=== PATIENT | male | born 1950 | race Caucasian/White ===

== ENCOUNTER 2021-12-26 08:45 | Outpatient (RCR) | payer BC, SELFPAY | END 2022-01-05 15:31 | disposition home or self-care (01) | PROVIDERS: PCP Family Medicine; Visit Provider Surgery | DX: R26.89 Other abnormalities of gait and mobility (principal); Z51.89 Encounter for other specified aftercare | CPT/HCPCS: 97110; 97112; 97162 ==

== ENCOUNTER 2023-07-31 06:18 | Day surgery (SDC) | payer MEDICARE, BC, SELFPAY ==
[2023-07-31] VITALS (15 sets, daily range): BP systolic 116–143; BP diastolic 65–80; PULSE 51–62; RESP 16–18; TEMP 36.1–36.6; O2SAT 94–100; BMI 39.2
[2023-07-31] MEDS: ACETAMINOPHEN 500 MG TABLET 1000 MG PO (06:25)
[2023-07-31] MEDS: OXYCODONE (CR) 10 MG TAB.ER.12H PO (06:25)
[2023-07-31] MEDS: SODIUM CHLORIDE 0.9 % (FLUSH) 10 ML SYRINGE IVF (06:30)
[2023-07-31] MEDS: LACTATED RINGERS 1000 ML 1,000 ML 100 ML IV ×2 (06:30→08:42)
--- NOTE | 2023-07-31 07:09 | W.PM.H&PU ---
History & Physical Update History & Physical Update H&P Reviewed and patient assessed: No changes noted
[2023-07-31] MEDS: MIDAZOLAM HCL 1 MG/ML inj IVP (07:20)
[2023-07-31] MEDS: fentaNYL 100 MCG/2 ML inj IVP (07:20)
--- NOTE | 2023-07-31 07:39 | SUR.PREOP ---
TIME?OUT:?75 PT/Ishmael TORREZ RN/Annette MUNGUIA MDA?VERIFICATION?OF?SURGICAL?SITE,?PROCEDURE,?AND?CONSENT OBTAINED?PRIOR?TO?INVASIVE?PROCEDURE.
[2023-07-31] MEDS: CEFAZOLIN 2 GM in 0.9 % SODIUM CHLORIDE Mini-bag 100 ML IVPB (07:41)
[2023-07-31] MEDS: TRANEXAMIC ACID 100 MG/ML INJ 1000 MG IV (07:45)
--- NOTE | 2023-07-31 09:32 | PM.ORPRC ---
Procedure Note Date of procedure: 07/31/23 Procedure: PREOPERATIVE DIAGNOSIS: 1. Right knee osteoarthritis, primary, severe POSTOPERATIVE DIAGNOSIS: 1. Right knee osteoarthritis, primary, severe PROCEDURE: 1. Right total knee arthroplasty - subvastus; modifier 22. 33% added time and difficulty for this case due to valgus deformity, large and numerous osteophytes/loose bodies, and increased body mass (BMI 39.3; total kg 131) which ultimately required increased time as noted but also increased assistants. SURGEON: Jorge Luis Baumann MD. RISK CONTROL SPECIALIST: Amanda Clemente PA-C - Of note, a skilled nursing home assistant was critical for this case to aid in patient positioning, tissue retraction, limb manipulation/positioning, and closure. ANESTHESIA: Spinal anesthetic IMPLANTS: DePuy J&J all cemented TKA - Attune PS femur size 7, size 7 tibia, 5 poly spacer, 38 mm patella TOURNIQUET: 120 minutes at 300 torr EBL: 50 ml COMPLICATIONS: None evident INDICATIONS: The patient is a pleasant 72-year-old male who has experienced severe right knee pain and difficulty bearing weight. Workup included x-rays which revealed severe osteoarthrosis in the knee. Given the deformity, the dysfunction, and the pain, as well as the failure of nonoperative management, recommendation was made for surgery. FINDINGS: Full-thickness chondral loss diffusely throughout the lateral and patellofemoral compartments. To a lesser degree medial compartment. Numerous and large osteophytes spectacular around the patella and the lateral compartment including large loose body posterolateral compartment. Moderate effusion upon entering the joint. DESCRIPTION OF PROCEDURE: Following a thorough discussion of risks, benefits, and alternatives consent was obtained and the right knee was marked. The patient was brought to the operating room and placed supine on the operating table. Induction of anesthesia was undertaken. 3 g IV Ancef and 1 g tranexamic acid was administered within 1 hr of incision preoperatively. Proper time-out was performed identifying proper patient, site, procedure. The operative extremity was prepped and draped in the appropriate sterile fashion using ChloraPrep after the patient was positioned supine with all bony prominences well padded. A longitudinal, anterior, midline skin incision was made starting approximately 3cm proximal to the superior pole of the patella and advanced distal to the tibial tubercle. A subvastus approach was utilized. A medial subperiosteal sleeve was created with knife, moore elevator and curved osteotome. The retropatellar fatpad was resected and the synovium in the suprapatellar pouch excised to visualize the anterior femoral cortex. Femoral preparation was performed via an intramedullary guide. Step drill allowed access into the femoral canal. The distal cutting guide was placed with 6 ? of valgus and 12 mm cut on the distal femur. Femur was sized using a posterior referencing guide but also based on trans epicondylar axis and Peach's line in 3? of external rotation. This found have a best fit with the sizing noted above. The 4 in 1 cutting block was then placed, and the distal femur shaped accordingly. The box cut was then created and the trial implant inserted to confirm appropriate fit. We turned our attention to the proximal tibia. Extramedullary guide was utilized for cutting with the goal of being 90 degree cut from the mechanical axis of the tibia in the varus/valgus plane utilizing tibial crest as the primary alignment. Initially a 2 mm resection was performed from the medial tibial plateau. Ultimately, balancing was achieved in both flexion and extension in both varus and valgus. The knee was able to achieve full extension as well comfortably. The patella was initially measured and found have a thickness of 22 mm. It was resected back to approximately 14.5 mm. It was sized to be a best fit with as noted above. This was drilled, trial placed. All trials were placed and found to have an excellent stability and balance. At this stage, trial implants were removed, the knee was thoroughly irrigated with normal saline, and the cement was mixed. After irrigation, the knee was thoroughly dried, and cement placed, with the real tibial and femoral implants placed along with the patella. Trial poly spacer was placed and confirmed to have excellent range of motion and full extension, and the real poly spacer opened and inserted. All extra cement was removed, and a 3 min Betadine soak performed. Finally, a final irrigation round with normal saline was performed. Closure performed with 0 Vicryl and #0 Stratafix for the quad tendon/retinaculum. 2-0 Vicryl for the subcutaneous and 4-0 Stratafix for subcuticular closure. Dressings were applied and the patient was awoken from anesthesia after the tourniquet deflated and transferred the PACU in stable condition. A skilled nursing home assistant was critical for this case to aid in patient positioning, tissue retraction, bone exposure, limb manipulation/positioning, patient safety, and closure. 33% added time and difficulty for this case due to valgus deformity, large and numerous osteophytes/loose bodies, and increased body mass (BMI 39.3; total kg 131) which ultimately required increased time as noted but also increased assistants. PLAN: 1. Weight bear as tolerated operative extremity. 2. 23 hr perioperative antibiotics. 3. Ice. 4. PT/OT consults for ambulation assistance/mobility education. 5. Social work consult for discharge planning. 6. DVT prophylaxis with at SCDs and aspirin twice daily.
--- NOTE | 2023-07-31 09:41 | CRLHL7_ITS ---
For Patients: As a result of the Cures Act, medical imaging exams and procedure reports are released immediately into your electronic medical record. You may view this report before your referring provider. If you have questions, please contact your health care provider. Indication: RT POST OP KNEE Technique: Two views right knee Findings/Impression: Hardware from a right total knee arthroplasty is in satisfactory position. Bone alignment is normal. No sign of acute fracture. Postop changes are within normal limits. Dictated by Jere Yanes MD @ 08/01/2023 11:05:26 AM (Electronically Signed)
--- NOTE | 2023-07-31 09:50 | P.NB_ITS ---
Nerve Block Nerve Block Time Seen by Provider: 07:26 Date Seen: 07/31/23 Type of block requested by surgeon for post-operative analgesia: geniculars Side: right Time out performed: Yes Verification of patient name: Yes Verification of date of : Yes Site marking: site marked Name of person performing procedure: Sorin Continuous monitoring Was continuous monitoring of O2 sat, B/P, cardiac nurse specialist, recorded every 15 minutes?: Yes Procedure Checklist: sterile prep, needles and gloves Medications given in 5ml increments after negative aspiration: Ropivicaine %: 0.5 mL: 9 Needle gauge: 25 Patient tolerated procedure well: Yes Block Charges Block Charge (with Pro Fee): Genicular Nerve Block Use of Ultrasound Machine for Block: No
--- NOTE | 2023-07-31 09:50 | W.PM.NB ---
Nerve Block Nerve Block Time Seen by Provider: 07:26 Date Seen: 07/31/23 Type of block requested by surgeon for post-operative analgesia: adductor canal Side: right Time out performed: Yes Verification of patient name: Yes Verification of date of : Yes Site marking: site marked Name of person performing procedure: Sorin Continuous monitoring Was continuous monitoring of O2 sat, B/P, sewing machine maintenance mechanic, recorded every 15 minutes?: Yes Procedure Checklist: sterile prep, needles and gloves Ultrasound guided. Images saved: Yes Medications given in 5ml increments after negative aspiration: Ropivicaine %: 0.5 mL: 20 Needle gauge: 20 Decadron (mg): 10 Precedex (mcg): 25 Patient tolerated procedure well: Yes Additional comments: Needle noted adjacent to nerve Block Charges Block Charge (with Pro Fee): Femoral Nerve Use of Ultrasound Machine for Block: Yes- US Guidance/pain block
--- NOTE | 2023-07-31 09:51 | W.ANESCHARGE ---
Anesthesia Charges Start Date/Time Anesthesia Start Date: 07/31/23 Anesthesia Start Time: 07:30 Stop Date/Time Anesthesia Stop Date: 07/31/23 Anesthesia Stop Time: 10:25 Summary Extremes of Age - Over 70 or under 1: MDA
--- NOTE | 2023-07-31 10:25 | W.ANESCHARGE ---
Anesthesia Charges Start Date/Time Anesthesia Start Date: 07/31/23 Anesthesia Start Time: 07:30 Stop Date/Time Anesthesia Stop Date: 07/31/23 Anesthesia Stop Time: 10:25
--- NOTE | 2023-07-31 10:49 | SUR.PHASEI ---
right knee xray taken as ordered
[2023-07-31] MEDS: LACTATED RINGERS 1000 ML 1,000 ML 50 ML IV (11:29)
--- NOTE | 2023-07-31 13:43 | SUR.PHASEII ---
pt returned from PT attempted to void but was not able to do so. Otherwise doing well. rechecked BG with his own meter -[id number]
== END 2023-07-31 14:21 | disposition home or self-care (01) ==
LOC: OR 06:19
PROVIDERS: PCP Surgery; Visit Provider Orthopaedic Surgery Sports Medicine
PROC: (CPT 27447; principal; 2023-07-31 07:45)
DX: M17.11 Unilateral primary osteoarthritis, right knee (principal); G89.18 Other acute postprocedural pain; M21.061 Valgus deformity, not elsewhere classified, right knee; Z68.39 Body mass index [BMI] 39.0-39.9, adult; I10 Essential (primary) hypertension; G47.33 Obstructive sleep apnea (adult) (pediatric); F41.9 Anxiety disorder, unspecified; E11.9 Type 2 diabetes mellitus without complications
CPT/HCPCS: 27447; 01402; 64447; 64454; 73560; 76942; 82962; 97110; 97116; 97161; 99100; A9270; C1776; J0690; J1100; J2250; J2405; J2704; J2795; J3010; J3490; J7120

== ENCOUNTER 2023-09-02 11:15 | Outpatient (RCR) | payer MEDICARE, BC, SELFPAY ==
--- NOTE | 2023-07-19 08:49 | PT.OPE ---
PT [place] Outpatient Eval PT [facility] Out[facility] Eval Start: 07/19/23 07:40 Freq: Status: Active Protocol: Document 07/19/23 07:40 ENM (Rec: 07/19/23 08:45 ENM [id number]) E-signed By Veronica Enciso, DPT Physical Therapy Outpatient Evaluation Insurance Information Recert Due Date 10/17/23 Insurance Name Medicare B Medical Diagnosis unilateral primary osteoarthritis, right knee presence of artificial right knee joint s/p right TKA 07/30 SDS Treating Diagnosis right knee pain, decreased knee ROM, impaired gait Referring MD Baumann Subjective Subjective Patient presents to PT prior to right knee replacement to be performed on 07/[address] Baumann. He had his left knee replaced 7 years ago. He has had 2 knee injections in the right which were helpful the first time but not the second. Has been dealing with this for a while. Standing and walking can be difficult due to the knee pain. Has been seen in the past in PT for balance issues. For home set up information see preop therapy flowsheet. Pain Comments 05/21 Current Work Status Retired Objective Other/Pertinent Objective Knee AROM L 0-0-114 R 0-7-105 Hip ROM: WFL with stiffness B Strength: hip flexors 4/5 B knee extensors: L 4+/5 R 4/5 Palpation: no pain along knee musculature Gait/posture: Patient ambulates with R knee valgus and antalgic gait pattern Other: mild HS tightness B Assessment Assessment/Impression Patient is a 72 year old male presenting for pre op visit prior to R TKA on DOS 07/31/23. Patient has difficulty with walking and standing due to knee pains. They will have support from their spouse at home. He has necessary assistive devices at home. Upon assessment patient displays decreased knee ROM, decreased proximal hip strength and antalgic gait pattern. His right knee rests in knee valgus. Nando will be seen post operatively to reassess impairments that will be addressed with skilled care. He would greatly benefit from skilled PT in order to progress strength, ROM and ambulation post operatively for return to PLOF. Primary Functional Limitations walking, standing Plan of Care Rehabilitation Potential Good Physical Therapy Goals After pre-op visit: ? Patient will be independent with HEP ? Patient will verbalize knowledge of stair navigation and proper sequencing ? Patient will have knowledge on home adaptations and use of assistive devices post operatively ? Patient will have knowledge of edema management Coordination/Communication With Referral Source Treatment Plan/Direct Interventions Electrical Stimulation,Gait Training,Ice/Cold/ Vasopneumatic,Joint Mobilization,Manual Therapy, Neuromuscular Re-ed,Self-Care/ Home Management,Therapeutic Activities,Therapeutic Exercises Frequency/Duration 1x visit prior to surgery on . Patient scheduled to start outpatient PT s/p R TKA on 08/01. Has HEP to start with pre-operatively. Post operatively 1-2x a week for 6-8 weeks Patient Will Be Discharged From Therapy Completion of LTG(s), Independent w/HEP Evaluation Billing Untimed Code Treatment Minutes 19 Complexity Low Certification Information Initial Certification Date 07/19/23 Ending Certification Date 10/17/23 Provider Signature Required Yes Provider Signature Shows Agreement With POC & Medical Necessity Physician NPI Number Write NPI# Here Physician Comment/Change : Physician Signature & Date Requested Please Sign/Date Here
--- NOTE | 2023-08-02 12:44 | PT.OPDN ---
PT [place] Outpatient Daily Note PT [facility] Outpatient Daily Note Start: 07/19/23 07:40 Freq: Status: Active Protocol: Document 08/02/23 07:52 ENM (Rec: 08/02/23 10:54 ENM [id number]) E-signed By Veronica Enciso DPT PT OP Daily Progress Note Visit Information Note Type Re-Evaluation Visit Number 2 Insurance Information Recert Due Date 10/17/23 Insurance Name Medicare B Medical Diagnosis unilateral primary osteoarthritis, right knee presence of artificial right knee joint s/p right TKA 07/30 SDS Treating Diagnosis right knee pain, impaired gait , weakness of right knee, impaired balance Referring MD Baumann Subjective Subjective Patient presents to PT 2 days s/p right TKA. He went home the same day. He has been doing some of the exercises at home. He has a space at home where he has been walking around 3-4 times. Last night and today have been the worse of the pain. Has been managing pain with oxycodone and advil . Right now has some burning needle like poking at the knee as well as some muscle pains. Has been getting around at home ok using his 2WW. Main difficulty is getting the leg in/out of bed. Bending the knee seems to be the most challenging thing right now. Pain Comments right now 04/20 at its worse 07/21 Home Exercise Home Exercise Comments Access Code: [email or web address] URL: [email or web address] Date: 07/19/2023 Prepared by: Veronica Enciso Exercises - Long Sitting Quad Set - 3 x daily - 7 x weekly - 10 reps - 5 sec hold - Long Sitting Ankle Pumps - 3 x daily - 7 x weekly - 10 reps - 5 sec hold - Supine Isometric Hamstring Set - 3 x daily - 7 x weekly - 10 reps - 5 sec hold - Supine Short Arc Quad - 3 x daily - 7 x weekly - 10 reps - Supine Straight Leg Raises - 3 x daily - 7 x weekly - 10 reps - Supine Heel Slide - 3 x daily - 7 x weekly - 10 reps - Seated Long Arc Quad - 3 x daily - 7 x weekly - 10 reps - Seated Heel Slide - 3 x daily - 7 x weekly - 5 reps - 30 sec hold - Seated Passive Knee Extension - 3 x daily - 7 x weekly - 15 min hold Objective Other/Pertinent Objective Knee AROM L 0-0-114 R 0-11-86 Strength: fair quad set able to perform SLR with ~10 deg lag Gait/balance: Patient ambulates with 2WW , antalgic gait pattern, step to pattern Swelling/observation: superior patella: L 49 cm R 55 cm mid patella: L 47.5 cm R 53 cm inf patella: L 45 cm R 46.6 cm Patient Instructed in Risks/Benefits Yes Therapeutic Exercise Therapeutic Exercise Minutes (minutes) 18 Therapeutic Exercise: To Restore - Supine Quad Set 2x10 with 5s Functional Status holds - Long Sitting Ankle Pumps 1x20 - Supine Isometric Hamstring 2x10 - Supine Straight Leg Raises 2x5 - Supine Heel Slide 2x10 Issued level E tubigrip to help with swelling management Manual Therapy Techniques Manual Therapy Minutes (minutes) 8 Manual Therapy Techniques -Skilled gentle soft tissue massage to lower leg, knee and thigh to help with swelling Gait & Stair Training Gait Training/Stairs Minutes (minutes) 4 Gait & Stair Training Comments -Ambulation x140' with 2WW focusing on right heel strike and quad activation which patient was able to implement Other Interventions Provided Other Modalities Provided supine icing of R knee to help with swelling management Other Modalities Untimed Minutes 5 Treatment Minutes Untimed Code Treatment Minutes 22 Timed Code Treatment Minutes 30 Total Treatment Time 52 Billing Units Manual Therapy Units 1 Therapeutic Exercise Units 1 Re-Evaluation Units 1 Assessment/Impression Assessment/Impression Patient returns to PT for evaluation after R TKA DOS . Pains have been tolerable ranging from a 3-6/10 after surgery which are being managed with ice and medication. He is getting around well with the 2WW. His main difficulty right now is bending the knee and getting it in and out of bed. Upon assessment patient displays decreased knee ROM, impaired gait, impaired transfers, decreased quad strength and swelling. Impairments consistent with s/ p TKA. Knee ROM measured at 0- 11-86 today. He has fair quad strength with setting and is able to complete a SLR without assist. Nando would benefit from skilled PT to address impairments stated above for return to PLOF after surgery. Plan of Care Physical Therapy Goals In 2-3 weeks: 1. Patient will improve knee ROM to > 100 for improved ease of STS transfers 2. Patient will ambulate with improved mechanics and less than 3/10 knee pain with or without AD >150' for improved household/community mobility 3. Patient will perform x10 SLR with improved form and strength to improve supine<> sit transfer In 4-6 weeks: 1. Patient will improve knee ROM to 120 in order to comfortably navigate stairs for household and community navigation 2. Patient will achieve knee extension to zero degrees for improved gait mechanics 3. Patient will be able to walk up to 10 minutes without use of AD or report of increased knee pain 4. Patient will return to wood working activities with less than 2/10 knee pain demonstrating improved activity tolerance Daily Plan of Care Continue per POC Daily Plan of Care Comments Plan: Progress ROM, strength, gait Recertification Information Recertification Start Date 08/02/23 Recertification Due Date 10/31/23 Reasons to Continue Skilled Therapy To address deficits stated above for return to PLOF after surgery Rehabilitation Potential good Continued Plan of Care and Interventions 1-2x a week for 6-8 weeks Provider Signature Shows Agreement With POC & Medical Necessity Physician Comment/Change Comment or Changes Physician NPI Number #
== END 2023-12-11 11:33 | disposition home or self-care (01) ==
PROVIDERS: PCP Surgery; Visit Provider Orthopaedic Surgery Sports Medicine
DX: M17.11 Unilateral primary osteoarthritis, right knee (principal); Z96.651 Presence of right artificial knee joint; Z74.09 Other reduced mobility; R26.9 Unspecified abnormalities of gait and mobility; M25.561 Pain in right knee; Z51.89 Encounter for other specified aftercare; R26.81 Unsteadiness on feet
CPT/HCPCS: 97110; 97140; 97161; 97164